=== PATIENT | female | born 1985 | race Caucasian/White ===

== ENCOUNTER 2021-01-08 11:30 | Emergency (ER) | payer OTHER ==
[2021-01-08 13:10] LABS: INR 1.12 (0.9-1.2); PROTHROMBIN TIME 13.8 SECONDS (11.8-13.4); PTT 33.2 SECONDS (24.4-34.7)
[2021-01-08 13:11] LABS: BASOPHIL 0.7 % (0-2); EOSINOPHIL 1.1 % (0-5); HCT 34.7 % (37.0-47.0); HGB 10.9 g/dl (12.5-16.0); LYMPHOCYTE 17.8 % (15-48); MCH 26.7 pg (25.0-31.0); MCHC 31.4 g/dL (32.0-36.0); MONOCYTE 7.8 % (0-12); MPV 10.7 fL (6.0-9.5); NRBC 0; PLT 277 K/uL (150-400); RBC 4.08 M/uL (4.20-5.40); RDW 13.6 % (11.5-14.0); WBC 8.5 K/uL (4.0-10.5)
[2021-01-08 13:19] LABS: ALBUMIN 4.2 g/dL (3.4-5.0); BILIRUBIN - TOTAL 0.3 mg/dL (0.2-1.0); CREATININE 0.83 mg/dL (0.51-0.95); GLOBULIN (CALCULATION) 3.4 g/dL; POTASSIUM 3.9 mmol/L (3.5-5.1); TOTAL PROTEIN 7.6 g/dL (6.4-8.2)
[2021-01-08 13:38] LABS: LIPASE 96 U/L (73-393)
[2021-01-08 13:41] LABS: C-REACTIVE PROTEIN < 0.20 mg/dL (<=0.90)
[2021-01-08] MEDS ORDERED: CARAFATE1 GM PO (15:28)
[2021-02-08] MEDS ORDERED: WELLBUTRIN XL150 MG PO (16:53)
[2021-02-08] MEDS ORDERED: PRILOSEC20 MG PO (16:54)
[2021-02-08] MEDS ORDERED: PEPCID AC20 MG PO (16:54)
== END 2021-01-08 16:00 | disposition home or self-care (01) ==
LOC: FER 11:30
PROVIDERS: Emergency Medicine Emergency Medical Services
DX: R07.89 Other chest pain (principal); R11.0 Nausea
CPT/HCPCS: 36415; 71045; 80053; 83690; 84484; 85025; 85379; 85610; 85730; 86140; 93005; J1885; J2405; J7030

== ENCOUNTER → 2021-02-16 | Day surgery (SDC) | payer OTHER ==
[~2021-02-16] VITALS: Ht 162.6 cm; Wt 83.9 kg
[~2021-02-16] MED LIST: CARAFATE1 GM PO; PEPCID AC20 MG PO; PRILOSEC20 MG PO; WELLBUTRIN XL150 MG PO
== END | disposition home or self-care (01) ==
LOC: FAS 08:39
DX: D50.9 Iron deficiency anemia, unspecified (principal); K29.50 Unspecified chronic gastritis without bleeding; G43.909 Migraine, unspecified, not intractable, without status migrainosus; F41.9 Anxiety disorder, unspecified; Z87.11 Personal history of peptic ulcer disease; Z79.899 Other long term (current) drug therapy
CPT/HCPCS: J2704; J7120